=== PATIENT | male | born 1930 | race Caucasian/White ===

== ENCOUNTER 2017-09-15 12:24 | Observation (INO) | payer MEDICARE ==
[~2017-09-15] VITALS: Ht 170.2 cm; Wt 70.1 kg
[~2017-09-15 12:24] MED LIST: ASPI-496 PO; ATOR40TA PO; DILT30TA33 PO; LOSA25TA2 PO; NITR0.4T SL; SIMV5TAB5 PO; TAMS0.4C2 PO; TICA90TA PO
[2017-09-15 12:55] LABS: BASOPHILS # (AUTO) 0.03 x10^3/uL (0-0.1); BASOPHILS % (AUTO) 1 % (0-1); EOSINOPHILS # (AUTO) 0.38 x10^3/uL (0-0.4); EOSINOPHILS % (AUTO) 7 % (1-7); LYMPHOCYTES # (AUTO) 1.36 x10^3/uL (1-3.4); LYMPHOCYTES % (AUTO) 23 % (22-44); MD NO; MEAN CORPUSCULAR HEMOGLOBIN 30.8 pg (27.5-34.5); MEAN CORPUSCULAR HGB CONC 33.5 g/dL (33.2-36.2); MEAN CORPUSCULAR VOLUME 91.9 fL (81-97); MEAN PLATELET VOLUME 7.8 fL (7.4-10.4); MONOCYTES # (AUTO) 0.58 x10^3/uL (0.2-0.8); MONOCYTES % (AUTO) 10 % (2-9); NEUTROPHILS # (AUTO) 3.49 x10^3/uL (1.8-6.8); NEUTROPHILS % (AUTO) 60 % (42-75); PLATELET COUNT 264 x10^3/uL (130-400); RED BLOOD COUNT 4.71 x10^6/uL (4.38-5.82); RED CELL DISTRIBUTION WIDTH 13.7 % (9.4-14.8)
[2017-09-15] MEDS ORDERED: SODIUM CHLORIDE FLUSH 10ML SYR IVF ONE (13:00)
[2017-09-15 13:03] LABS: INTERNATIONAL NORMALIZED RATIO 0.96 (0.93-1.1)
[2017-09-15] MEDS ORDERED: ATOR-2 PO ×2 (13:03→13:15)
[2017-09-15 13:04] LABS: ANION GAP 7 mmol/L (5-15); CALCIUM 9.5 mg/dL (8.5-10.1); CHLORIDE 104 mmol/L (98-107); CREATININE 1.18 mg/dL (0.7-1.3)
[2017-09-15] MEDS ORDERED: CHOL100014 PO (13:15)
[2017-09-15] MEDS ORDERED: VITA150T PO (13:15)
[2017-09-15] MEDS ORDERED: MAGN300C PO (13:15)
[2017-09-15] MEDS ORDERED: DILT420C10 PO (13:15)
[2017-09-15] MEDS ORDERED: LOSA100T6 PO (13:15)
[2017-09-15] MEDS ORDERED: NIAC500C8 PO (13:15)
[2017-09-15] MEDS ORDERED: OMEG1CAP23 PO (13:15)
[2017-09-15] MEDS ORDERED: CALC1TAB84 PO (13:15)
[2017-09-15] MEDS ORDERED: IRON1TAB60 PO (13:15)
[2017-09-15] MEDS ORDERED: L.AC1CAP4 PO (13:15)
[2017-09-15] MEDS ORDERED: SENN1TAB67 PO (13:15)
[2017-09-15] MEDS ORDERED: SODIUM CHLORIDE FLUSH 10ML SYR IVF PRN (14:30)
[2017-09-15] MEDS ORDERED: ENALAPRILAT 1.25 MG/ML, 2ML IVPush PRN (15:30)
[2017-09-15] MEDS ORDERED: NITROGLYCERIN 0.4 MG BOTTLE (25 TABS) SL PRN (15:30)
[2017-09-15] MEDS ORDERED: ACETAMINOPHEN 325 MG TABLET PO PRN (15:30)
[2017-09-15] MEDS: SODIUM CHLORIDE 0.9% 1,000 ML IV SCH (16:15)
[2017-09-15 16:18] VITALS: BP 144/78
[2017-09-15 17:14] LABS: TROPONIN I < 0.015 ng/mL (0.000-0.045)
[2017-09-15 18:32] VITALS: BP 122/73
[2017-09-15] MEDS ORDERED: TICAGRELOR 90 MG TABLET ONE (19:49)
[2017-09-15 20:10] VITALS: BP 131/74
[2017-09-15] MEDS: DILTIAZEM 30 MG TABLET PO SCH (20:14)
[2017-09-15] MEDS: TICAGRELOR 90 MG TABLET PO SCH (20:14)
[2017-09-15] MEDS ORDERED: ATORVASTATIN 40 MG TABLET PO SCH (21:00)
[2017-09-16 00:06] LABS: TROPONIN I < 0.015 ng/mL (0.000-0.045)
[2017-09-16 00:41] VITALS: BP 124/69
[2017-09-16 05:19] LABS: BASOPHILS # (AUTO) 0.04 x10^3/uL (0-0.1); BASOPHILS % (AUTO) 1 % (0-1); EOSINOPHILS % (AUTO) 12 % (1-7); LYMPHOCYTES # (AUTO) 1.68 x10^3/uL (1-3.4); LYMPHOCYTES % (AUTO) 23 % (22-44); MD NO; MEAN CORPUSCULAR HEMOGLOBIN 30.7 pg (27.5-34.5); MEAN CORPUSCULAR HGB CONC 33.5 g/dL (33.2-36.2); MEAN CORPUSCULAR VOLUME 91.6 fL (81-97); MONOCYTES # (AUTO) 0.61 x10^3/uL (0.2-0.8); MONOCYTES % (AUTO) 8 % (2-9); NEUTROPHILS # (AUTO) 4.03 x10^3/uL (1.8-6.8); NEUTROPHILS % (AUTO) 56 % (42-75); PLATELET COUNT 252 x10^3/uL (130-400); RED BLOOD COUNT 4.59 x10^6/uL (4.38-5.82); RED CELL DISTRIBUTION WIDTH 13.3 % (9.4-14.8)
[2017-09-16 05:23] LABS: CHLORIDE 108 mmol/L (98-107)
[2017-09-16 05:41] LABS: ANION GAP 9 mmol/L (5-15); CALCIUM 8.9 mg/dL (8.5-10.1); CHOL/HDL RATIO 4.3; CHOLESTEROL, TOTAL 129 mg/dL (140-239); CREATININE 1.04 mg/dL (0.7-1.3); HDL CHOL % 23 % (26-37); HDL CHOLESTEROL (DIRECT) 30 mg/dL (40-60); LDL CHOLESTEROL,CALCULATED 63 mg/dL (54-169); LDL/HDL RATIO 2.1 (0.5-3.0); TRIGLYCERIDES 181 mg/dL (50-200); VLDL CHOLESTEROL 36 mg/dL (0-25)
[2017-09-16] MEDS: SODIUM CHLORIDE 0.9% 1,000 ML IV SCH (05:48)
[2017-09-16] MEDS ORDERED: REGADENOSON 0.4 MG/5 ML SYRINGE ONE (08:14)
[2017-09-16 08:30] VITALS: BP 146/71
[2017-09-16] MEDS ORDERED: ASPIRIN 81 MG TABLET EC PO SCH (09:00)
[2017-09-16] MEDS ORDERED: LOSARTAN 50MG TABLET PO SCH (09:00)
[2017-09-16] MEDS ORDERED: SENNA/DOCUSATE TABLET PO SCH (09:00)
[2017-09-16] MEDS ORDERED: MULTIVITAMINS WITH IRON TABLET PO SCH (09:00)
[2017-09-16] MEDS ORDERED: CALCIUM/VITAMIN D3 250-125 TABLET PO SCH (09:00)
[2017-09-16] MEDS ORDERED: MULTIVITS,STRESS FORMULA 1 TABLET PO SCH (09:00)
[2017-09-16] MEDS ORDERED: NIACIN 500 MG TABLET.ER PO SCH (09:00)
[2017-09-16] MEDS ORDERED: MAGNESIUM OXIDE 400 MG TABLET PO SCH (09:00)
[2017-09-16] MEDS ORDERED: CHOLECALCIFEROL 1,000 UNIT TABLET PO SCH (09:00)
[2017-09-16] MEDS ORDERED: LACTOBACILLUS CHEW TABLET PO SCH (09:00)
[2017-09-16] MEDS ORDERED: TAMSULOSIN 0.4 MG CAP.ER.24H PO SCH (09:00)
[2017-09-16] MEDS ORDERED: OMEGA-3/FISH OIL CAPSULE PO SCH (09:00)
[2017-09-16] MEDS: TICAGRELOR 90 MG TABLET PO SCH (11:10)
[2017-09-16] MEDS: DILTIAZEM 30 MG TABLET PO SCH (11:10)
[2017-09-16 13:02] VITALS: BP 138/78
== END 2017-09-16 14:00 | disposition home or self-care (01) ==
LOC: ED 14:08 → EDIP 14:09 → INTOOBSV 14:09 → ED 14:38 → 5SO 15:49 → DCLOUNGE 09-16 13:51
PROVIDERS: ADMIT Family Medicine; ATTEND Family Medicine
DX: R07.89 Other chest pain (principal); I10 Essential (primary) hypertension; E78.5 Hyperlipidemia, unspecified; K21.9 Gastro-esophageal reflux disease without esophagitis; N40.0 Benign prostatic hyperplasia without lower urinary tract symptoms; I45.10 Unspecified right bundle-branch block; Z95.5 Presence of coronary angioplasty implant and graft; Z87.891 Personal history of nicotine dependence; Z85.46 Personal history of malignant neoplasm of prostate; Z79.82 Long term (current) use of aspirin
CPT/HCPCS: 36415; 71045; 78452; 80048; 80061; 82040; 83735; 83880; 84100; 84443; 84484; 85025; 85610; 85730; 93005; 93017; 96360; 96361; 99285; A9502; C9898; G0378; J2785; J7030

== ENCOUNTER → 2017-10-14 | Outpatient (CLI) | payer MEDICARE ==
[~2017-10-14] MED LIST changes: +ATOR-2 PO; +CALC1TAB84 PO; +CHOL100014 PO; +DILT420C10 PO; +IRON1TAB60 PO; +L.AC1CAP4 PO; +LOSA100T6 PO; +MAGN300C PO; +NIAC500C8 PO; +OMEG1CAP23 PO; +SENN1TAB67 PO; +VITA150T PO
== END ==
LOC: CFH 09:35
PROVIDERS: ATTEND Nurse Practitioner Family
DX: I08.0 Rheumatic disorders of both mitral and aortic valves (principal); I25.10 Atherosclerotic heart disease of native coronary artery without angina pectoris; I10 Essential (primary) hypertension; E78.5 Hyperlipidemia, unspecified; Z95.5 Presence of coronary angioplasty implant and graft
CPT/HCPCS: 93306

== ENCOUNTER → 2019-10-05 | Outpatient (CLI) | payer MEDICARE ==
[~2019-10-05] MED LIST changes: +LOSA100T14 PO; -LOSA100T6 PO; +METO25TA35 PO; -NITR0.4T SL; +NITR0.4T41 SL; +OMEP-110 PO; +SIMV5TAB14 PO; -SIMV5TAB5 PO
== END | disposition home or self-care (01) ==
LOC: CVU 10:46
PROVIDERS: ATTEND Internal Medicine Cardiovascular Disease
DX: I08.0 Rheumatic disorders of both mitral and aortic valves (principal); I25.10 Atherosclerotic heart disease of native coronary artery without angina pectoris; I10 Essential (primary) hypertension; E78.5 Hyperlipidemia, unspecified; Z95.5 Presence of coronary angioplasty implant and graft
CPT/HCPCS: 93306; 93356